=== PATIENT | male | born 1945 | race Caucasian/White ===

== ENCOUNTER 2016-10-02 12:57 | Outpatient (CLI) | payer MEDICARE, OTHER | END 2016-10-02 12:58 | disposition home or self-care (01) | DX: I10 Essential (primary) hypertension (principal); R73.01 Impaired fasting glucose; E78.5 Hyperlipidemia, unspecified ==

== ENCOUNTER 2016-10-31 10:24 | Day surgery (SDC) | payer MEDICARE, OTHER ==
[2016-10-31] MEDS ORDERED: LACTATED RINGERS 1,000 ML IV ONE (10:55)
[2016-10-31] MEDS ORDERED: MIDAZOLAM 2 MG/2 ML VIAL IVP ONE (13:00)
[2016-10-31] MEDS ORDERED: fentaNYL 250 MCG/5 ML VIAL IVP ONE (13:00)
== END 2016-10-31 10:25 | disposition home or self-care (01) ==
PROC: 0DJD8ZZ Inspection of Lower Intestinal Tract, Via Natural or Artificial Opening Endoscopic (ICD-10-PCS; principal; 2016-10-31 11:45)
DX: Z12.11 Encounter for screening for malignant neoplasm of colon (principal); K64.8 Other hemorrhoids; K57.30 Diverticulosis of large intestine without perforation or abscess without bleeding; K64.4 Residual hemorrhoidal skin tags; I10 Essential (primary) hypertension; Z87.891 Personal history of nicotine dependence
CPT/HCPCS: G0121; J3010; J7120

== ENCOUNTER 2017-05-03 11:15 | Outpatient (CLI) | payer MEDICARE, OTHER | END 2017-05-03 11:16 | disposition home or self-care (01) | LOC: LAB 11:15 | PROVIDERS: ATTEND Urology | DX: C61 Malignant neoplasm of prostate (principal) | CPT/HCPCS: 36415; 84153 ==

== ENCOUNTER 2018-04-10 08:00 | Outpatient (CLI) | payer MEDICARE, OTHER ==
[2018-04-10 13:34] LABS: EOSINOPHILS # (AUTO) 0.1 10^3/uL (0.0-0.7); EOSINOPHILS % (AUTO) 2.9 %; HGB - HEMOGLOBIN 13.3 g/dL (14.0-18.0); LYMPHOCYTES # (AUTO) 0.8 10^3/uL (1.5-3.5); LYMPHOCYTES % (AUTO) 18.7 %; MEAN CORPUSCULAR HGB CONC 34.7 g/dL (32.0-36.0); MEAN CORPUSCULAR VOLUME 97.8 fL (80.0-94.0); MEAN PLATELET VOLUME 8.8 fL (7.4-11.4); MONOCYTES # (AUTO) 0.5 10^3/uL (0.0-1.0); MONOCYTES % (AUTO) 12.5 %; NEUTROPHILS # (AUTO) 2.7 10^3/uL (1.5-6.6); NEUTROPHILS % (AUTO) 64.9 %; PLT - PLATELET COUNT 196 10^3/uL (130-450); RED CELL DISTRIBUTION WIDTH 13.3 % (12.0-15.0); WHITE BLOOD COUNT 4.2 x10^3/uL (4.8-10.8)
[2018-04-10 13:48] LABS: ALBUMIN/GLOBULIN RATIO 1.3 (1.0-2.2); ALKALINE PHOSPHATASE 59 IU/L (42-121); ALT ALANINE AMINOTRANSFERASE 11 IU/L (10-60); AST ASPARTATE AMINOTRANSFERASE 19 IU/L (10-42); BILIRUBIN,TOTAL 1.5 mg/dL (0.2-1.0); BUN - BLOOD UREA NITROGEN 17 mg/dL (6-20); CALCIUM 9.3 mg/dL (8.5-10.3); CARBON DIOXIDE - CO2 27 mmol/L (21-32); CHLORIDE 105 mmol/L (101-111); CHOL/HDL RATIO 2.9 (<5.0); CHOLESTEROL 161 mg/dL; CREATININE 0.9 mg/dL (0.6-1.2); GFR - MDRD 83 (>89); GLUCOSE 131 mg/dL (70-100); HDL CHOLESTEROL 55 mg/dL; LDL CHOLESTEROL,CALCULATED 92 mg/dL; LDL/HDL RATIO 1.7 (<3.6); SODIUM 139 mmol/L (135-145); VLDL CHOLESTEROL 14 mg/dL
[2018-04-10 14:38] LABS: HB2 TOTAL 13.9 g/dL; HEMOGLOBIN A1C 0.47 g/dL; HEMOGLOBIN A1C % 5.2 % (4.6-6.2)
== END 2018-04-10 08:01 | disposition home or self-care (01) ==
LOC: LAB.WCP 08:00
PROVIDERS: ATTEND Family Medicine
DX: R73.01 Impaired fasting glucose (principal); I10 Essential (primary) hypertension; C61 Malignant neoplasm of prostate
CPT/HCPCS: 36415; 80053; 80061; 83036; 83721; 84153; 84443; 85025

== ENCOUNTER 2019-05-01 07:05 | Outpatient (CLI) | payer MEDICARE, OTHER ==
[2019-05-01 12:31] LABS: BASOPHILS % (AUTO) 0.5 %; EOSINOPHILS # (AUTO) 0.2 10^3/uL (0.0-0.7); EOSINOPHILS % (AUTO) 4.1 %; HGB - HEMOGLOBIN 12.6 g/dL (14.0-18.0); LYMPHOCYTES # (AUTO) 0.7 10^3/uL (1.5-3.5); MEAN CORPUSCULAR HEMOGLOBIN 33.5 pg (27.0-31.0); MEAN CORPUSCULAR HGB CONC 33.8 g/dL (32.0-36.0); MEAN CORPUSCULAR VOLUME 99.2 fL (80.0-94.0); MEAN PLATELET VOLUME 10.9 fL (7.4-11.4); MONOCYTES # (AUTO) 0.5 10^3/uL (0.0-1.0); NEUTROPHILS % (AUTO) 67.9 %; PLT - PLATELET COUNT 217 10^3/uL (130-450); RED BLOOD COUNT 3.76 10^6/uL (4.70-6.10); RED CELL DISTRIBUTION WIDTH 12.7 % (12.0-15.0); WHITE BLOOD COUNT 4.4 x10^3/uL (4.8-10.8)
[2019-05-01 12:36] LABS: ALBUMIN 4.1 g/dL (3.2-5.5); ALBUMIN/GLOBULIN RATIO 1.3 (1.0-2.2); ALKALINE PHOSPHATASE 55 IU/L (42-121); ALT ALANINE AMINOTRANSFERASE 13 IU/L (10-60); AST ASPARTATE AMINOTRANSFERASE 20 IU/L (10-42); BILIRUBIN,TOTAL 1.6 mg/dL (0.2-1.0); BUN - BLOOD UREA NITROGEN 15 mg/dL (6-20); CALCIUM 9.3 mg/dL (8.5-10.3); CARBON DIOXIDE - CO2 26 mmol/L (21-32); CHLORIDE 108 mmol/L (101-111); CHOL/HDL RATIO 2.9 (<5.0); CHOLESTEROL 153 mg/dL; CREATININE 0.9 mg/dL (0.6-1.2); GFR - MDRD 83 (>89); GLUCOSE 100 mg/dL (70-100); HDL CHOLESTEROL 53 mg/dL; LDL CHOLESTEROL,CALCULATED 91 mg/dL; LDL/HDL RATIO 1.7 (<3.6); SODIUM 142 mmol/L (135-145); TOTAL PROTEIN 7.3 g/dL (6.7-8.2); VLDL CHOLESTEROL 9 mg/dL
[2019-05-01 13:13] LABS: HB2 TOTAL 13.1 g/dL; HEMOGLOBIN A1C 0.49 g/dL; HEMOGLOBIN A1C % 5.6 % (4.6-6.2)
== END 2019-05-01 23:59 | disposition home or self-care (01) ==
LOC: LAB.WCP 07:05
PROVIDERS: ATTEND Family Medicine
DX: E78.5 Hyperlipidemia, unspecified (principal); I10 Essential (primary) hypertension; R73.01 Impaired fasting glucose; F10.10 Alcohol abuse, uncomplicated
CPT/HCPCS: 36415; 80053; 80061; 83036; 83721; 84443; 85025

== ENCOUNTER 2019-07-15 07:00 | Outpatient (CLI) | payer MEDICARE, OTHER ==
[2019-07-15 12:55] LABS: BASOPHILS % (AUTO) 0.5 %; EOSINOPHILS # (AUTO) 0.1 10^3/uL (0.0-0.7); EOSINOPHILS % (AUTO) 1.1 %; HGB - HEMOGLOBIN 13.8 g/dL (14.0-18.0); LYMPHOCYTES # (AUTO) 0.7 10^3/uL (1.5-3.5); LYMPHOCYTES % (AUTO) 12.6 %; MEAN CORPUSCULAR HGB CONC 33.1 g/dL (32.0-36.0); MEAN CORPUSCULAR VOLUME 99.8 fL (80.0-94.0); MEAN PLATELET VOLUME 10.7 fL (7.4-11.4); MONOCYTES # (AUTO) 0.7 10^3/uL (0.0-1.0); MONOCYTES % (AUTO) 12.6 %; NEUTROPHILS # (AUTO) 4.1 10^3/uL (1.5-6.6); NEUTROPHILS % (AUTO) 72.8 %; PLT - PLATELET COUNT 227 10^3/uL (130-450); RED BLOOD COUNT 4.18 10^6/uL (4.70-6.10); RED CELL DISTRIBUTION WIDTH 12.2 % (12.0-15.0); WHITE BLOOD COUNT 5.7 x10^3/uL (4.8-10.8)
[2019-07-15 13:25] LABS: ALBUMIN 4.4 g/dL (3.2-5.5); ALBUMIN/GLOBULIN RATIO 1.2 (1.0-2.2); BILIRUBIN,TOTAL 1.9 mg/dL (0.2-1.0); CALCIUM 9.2 mg/dL (8.5-10.3); CREATININE 0.9 mg/dL (0.6-1.2); TOTAL PROTEIN 8.2 g/dL (6.7-8.2)
== END 2019-07-15 23:59 | disposition home or self-care (01) ==
LOC: LAB.WCP 07:00
PROVIDERS: ATTEND Family Medicine
DX: N50.82 Scrotal pain (principal); C61 Malignant neoplasm of prostate
CPT/HCPCS: 36415; 80053; 84153; 85025; 87077; 87086; 87181

== ENCOUNTER 2019-07-18 16:31 | Outpatient (CLI) | payer MEDICARE, OTHER ==
--- NOTE | 2019-07-20 00:59 | Ultrasound Report ---
Reason: ADENOCARCINOMA PROSTATE, SCROTAL PAIN Procedure Date: 07/18/2019 Accession Number: [id number] / [id number] Procedure: US - Testicle CPT Code: Final Report FULL RESULT: EXAM: SCROTAL ULTRASOUND EXAM DATE: 07/18/2019 05:20 PM. CLINICAL HISTORY: Adenocarcinoma prostate. Scrotal pain. COMPARISON: None. TECHNIQUE: Real-time scanning was performed with static images obtained. Color-flow images were utilized. FINDINGS: Right: Testis: 3.4 x 1.8 x 1.8 cm. Normal size and echotexture. No mass or calcification. Increased abnormal blood flow. Epididymis: 1.7 x 2.0 x 1.8 cm. Normal size and echotexture. No mass. 2 mm cyst. Increased blood flow. Hydrocele: Large amount with septation. Varicocele: None. Left: Testis: 3.1 x 1.5 x 1.6 cm. Normal size and echotexture. No mass, calcification, or abnormal blood flow. Epididymis: 1.0 x 0.8 x 1.0 cm. Normal size and echotexture. No mass or abnormal blood flow. 2 mm cyst. Hydrocele: None. Varicocele: None. Scrotal wall thickening noted, right greater than left. IMPRESSION: Hypervascular right testicle and epididymis compatible with orchitis and epididymitis, with surrounding hydrocele with thin septations. RADIA
== END 2019-07-18 16:32 | disposition home or self-care (01) ==
LOC: DI 16:31
PROVIDERS: ATTEND Family Medicine
DX: C61 Malignant neoplasm of prostate (principal); N50.82 Scrotal pain; N43.3 Hydrocele, unspecified
CPT/HCPCS: 76870

== ENCOUNTER 2020-10-13 08:00 | Outpatient (CLI) | payer MEDICARE, OTHER ==
[2020-10-13 18:22] LABS: BASOPHILS % (AUTO) 0.6 %; EOSINOPHILS # (AUTO) 0.1 10^3/uL (0.0-0.7); EOSINOPHILS % (AUTO) 2.4 %; HGB - HEMOGLOBIN 13.2 g/dL (14.0-18.0); LYMPHOCYTES % (AUTO) 19.6 %; MEAN CORPUSCULAR HEMOGLOBIN 33.4 pg (27.0-31.0); MEAN CORPUSCULAR VOLUME 101.3 fL (80.0-94.0); MEAN PLATELET VOLUME 10.5 fL (7.4-11.4); MONOCYTES # (AUTO) 0.4 10^3/uL (0.0-1.0); MONOCYTES % (AUTO) 7.7 %; NEUTROPHILS # (AUTO) 3.5 10^3/uL (1.5-6.6); NEUTROPHILS % (AUTO) 69.3 %; PLT - PLATELET COUNT 233 10^3/uL (130-450); RED BLOOD COUNT 3.95 10^6/uL (4.70-6.10); RED CELL DISTRIBUTION WIDTH 12.7 % (12.0-15.0); WHITE BLOOD COUNT 5.1 x10^3/uL (4.8-10.8)
[2020-10-13 18:35] LABS: ALBUMIN 4.2 g/dL (3.2-5.5); ALBUMIN/GLOBULIN RATIO 1.3 (1.0-2.2); ALKALINE PHOSPHATASE 54 IU/L (42-121); ALT ALANINE AMINOTRANSFERASE 12 IU/L (10-60); AST ASPARTATE AMINOTRANSFERASE 16 IU/L (10-42); BILIRUBIN,TOTAL 1.1 mg/dL (0.2-1.0); BUN - BLOOD UREA NITROGEN 19 mg/dL (6-20); CALCIUM 9.7 mg/dL (8.5-10.3); CARBON DIOXIDE - CO2 27 mmol/L (21-32); CHLORIDE 100 mmol/L (101-111); CHOL/HDL RATIO 3.6 (<5.0); CHOLESTEROL 213 mg/dL; CREATININE 0.8 mg/dL (0.6-1.2); GLUCOSE 115 mg/dL (70-100); HDL CHOLESTEROL 59 mg/dL; LDL CHOLESTEROL,CALCULATED 130 mg/dL; LDL/HDL RATIO 2.2 (<3.6); TOTAL PROTEIN 7.4 g/dL (6.7-8.2); VLDL CHOLESTEROL 24 mg/dL
[2020-10-13 20:53] LABS: HEMOGLOBIN A1c% 5.5 % (4.27-6.07)
== END 2020-10-13 23:59 | disposition home or self-care (01) ==
LOC: LAB.WCP 08:00
PROVIDERS: ATTEND Family Medicine
DX: I10 Essential (primary) hypertension (principal); E78.5 Hyperlipidemia, unspecified; R73.01 Impaired fasting glucose; Z85.46 Personal history of malignant neoplasm of prostate
CPT/HCPCS: 36415; 80053; 80061; 83036; 83721; 84153; 85025

== ENCOUNTER 2020-10-28 10:11 | Outpatient (CLI) | payer MEDICARE, OTHER ==
--- NOTE | 2020-10-28 11:27 | Ultrasound Report ---
PROCEDURE: Aorta Screening INDICATIONS: NICOTINE ADDICTION, IN REMISSION TECHNIQUE: Real time scanning was performed of the aorta and iliac arteries, with image documentatio n. COMPARISON: None FINDINGS: Aorta: Proximal aortic diameter measures 3.3 cm. Mid-aorta measures 3.2 cm. Distal aortic diameter is 3.5 cm. Iliac arteries: Right common iliac artery measures 1.9 cm. Left common iliac artery measures 1.9 cm . IMPRESSION: Mild aneurysmal dilatation of the abdominal aorta. Annual sonographic surveillance is recommended. Reviewed by: Tamanna Flynn MD on 10/28/2020 11:25 AM [facility] Approved by: Tamanna Flynn MD on 10/28/2020 11:25 AM PST Station ID: [id number]
== END 2020-10-28 10:12 | disposition home or self-care (01) ==
LOC: DI 10:11
PROVIDERS: ATTEND Family Medicine
DX: F17.201 Nicotine dependence, unspecified, in remission (principal); I71.4 Abdominal aortic aneurysm, without rupture

== ENCOUNTER 2021-09-30 08:00 | Outpatient (CLI) | payer MEDICARE, OTHER ==
[2021-09-30 12:21] LABS: BASOPHILS % (AUTO) 0.4 %; EOSINOPHILS # (AUTO) 0.1 10^3/uL (0.0-0.7); EOSINOPHILS % (AUTO) 1.9 %; HCT - HEMATOCRIT 40.5 % (42.0-52.0); HGB - HEMOGLOBIN 13.7 g/dL (14.0-18.0); LYMPHOCYTES # (AUTO) 0.5 10^3/uL (1.5-3.5); LYMPHOCYTES % (AUTO) 19.7 %; MEAN CORPUSCULAR HGB CONC 33.8 g/dL (32.0-36.0); MEAN CORPUSCULAR VOLUME 97.6 fL (80.0-94.0); MEAN PLATELET VOLUME 10.9 fL (7.4-11.4); MONOCYTES # (AUTO) 0.4 10^3/uL (0.0-1.0); MONOCYTES % (AUTO) 13.3 %; NEUTROPHILS # (AUTO) 1.7 10^3/uL (1.5-6.6); NEUTROPHILS % (AUTO) 62.8 %; PLT - PLATELET COUNT 176 10^3/uL (130-450); RED BLOOD COUNT 4.15 10^6/uL (4.70-6.10); RED CELL DISTRIBUTION WIDTH 12.1 % (12.0-15.0); WHITE BLOOD COUNT 2.6 x10^3/uL (4.8-10.8)
[2021-09-30 12:24] LABS: SLIDE REVIEW? Indicated
[2021-09-30 13:10] LABS: ALBUMIN 3.9 g/dL (3.2-5.5); ALBUMIN/GLOBULIN RATIO 1.1 (1.0-2.2); ALKALINE PHOSPHATASE 62 IU/L (42-121); ALT ALANINE AMINOTRANSFERASE 16 IU/L (10-60); AST ASPARTATE AMINOTRANSFERASE 24 IU/L (10-42); BILIRUBIN,TOTAL 0.8 mg/dL (0.2-1.0); BUN - BLOOD UREA NITROGEN 20 mg/dL (6-20); CALCIUM 9.2 mg/dL (8.5-10.3); CARBON DIOXIDE - CO2 27 mmol/L (21-32); CHLORIDE 102 mmol/L (101-111); CHOL/HDL RATIO 5.2 (<5.0); CHOLESTEROL 155 mg/dL; CREATININE 0.9 mg/dL (0.6-1.2); GFR - MDRD 82 (>89); GLUCOSE 124 mg/dL (70-100); HDL CHOLESTEROL 30 mg/dL; LDL CHOLESTEROL,CALCULATED 111 mg/dL; LDL/HDL RATIO 3.7 (<3.6); POTASSIUM 3.9 mmol/L (3.5-5.0); SODIUM 139 mmol/L (135-145); TOTAL PROTEIN 7.4 g/dL (6.7-8.2); TRIGLYCERIDES 69 mg/dL; VLDL CHOLESTEROL 14 mg/dL
[2021-09-30 13:38] LABS: PLATELET ESTIMATE, MANUAL NORMAL (130-450,000) (NORMAL); PLATELET MORPHOLOGY NORMAL APPEARANCE (NORMAL); RBC MORPHOLOGY (MULTIPLE) NORMAL APPEARANCE (NORMAL); WBC MORPHOLOGY (MULTIPLE) NORMAL APPEARANCE (NORMAL)
[2021-09-30 15:22] LABS: ESTIMATED AVERAGE GLUCOSE 126 mg/dL (70-100)
== END 2021-09-30 23:59 | disposition home or self-care (01) ==
LOC: LAB.WCP 08:00
PROVIDERS: ATTEND Family Medicine
DX: E78.5 Hyperlipidemia, unspecified (principal); I10 Essential (primary) hypertension; N40.1 Benign prostatic hyperplasia with lower urinary tract symptoms; N13.8 Other obstructive and reflux uropathy
CPT/HCPCS: 36415; 80053; 80061; 83036; 83721; 84153; 85025

== ENCOUNTER 2021-09-30 13:49 | Emergency (ER) | payer MEDICARE, OTHER ==
[2021-09-30 13:58] VITALS: BP 145/75
--- NOTE | 2021-09-30 14:10 | ED Physician Documentation ---
History of Present Illness - Stated complaint Stated Complaint: COVID EXPOSURE - Chief complaint Chief Complaint: Resp - History obtained from History obtained from: Patient - History of Present Illness Timing: Today Pain level max: 0 Pain level now: 0 - Additonal information Additional information: Patient is a 76-year-old male who states that he was exposed to Covid and is here for a Covid test. He states he could not find anywhere else to get a Covid test. Patient is asymptomatic. Review of Systems Constitutional: denies: Fever, Chills Respiratory: denies: Cough GI: denies: Vomiting, Diarrhea Skin: denies: Rash Musculoskeletal: denies: Neck pain, Back pain Neurologic: denies: Headache PD PAST MEDICAL HISTORY - Past Medical History Past Medical History: Yes Cardiovascular: Hypertension, High cholesterol Respiratory: None Endocrine/Autoimmune: None GI: None : None, Other HEENT: None Psych: None Musculoskeletal: None Derm: None - Past Surgical History Past Surgical History: Yes General: Colonoscopy - Present Medications Home Medications: Ambulatory Orders Medication Instructions Recorded Confirmed Simvastatin 20 mg PO DAILY 10/30/16 10/31/16 Tamsulosin [Flomax] 0.4 mg PO DAILY 10/30/16 10/31/16 atenoloL [Atenolol] 25 mg PO DAILY 10/30/16 10/31/16 lisinopriL [Lisinopril] 30 mg PO DAILY 10/30/16 10/31/16 - Allergies Allergies/Adverse Reactions: Allergies Allergy/AdvReac Type Severity Reaction Status Date / Time No Known Drug Allergies Allergy Verified 09/30/21 13:58 - Social History Does the pt smoke?: No Smoking Status: Never smoker Does the pt drink ETOH?: Yes ETOH Use: Beer Does the pt have substance abuse?: Yes Substance Use and Type: Marijuana - Immunizations Immunizations are current?: Yes PD ED PE NORMAL - Vitals Vital signs reviewed: Yes - General General: Alert and oriented X 3, No acute distress, Well developed/nourished - HEENT HEENT: Moist mucous membranes - Neck Neck: Supple, no meningeal sign - Cardiac Cardiac: RRR, Strong equal pulses - Respiratory Respiratory: No respiratory distress, Clear bilaterally - Derm Derm: Warm and dry - Neuro Neuro: Alert and oriented X 3 Results - Vitals Vitals: Vital Signs - 24 hr 09/30/21 13:53 Temperature 36.2 C L Heart Rate 92 Respiratory 20 Rate Blood Pressure 145/75 H O2 Saturation 97 Oxygen O2 Source Room air PD MEDICAL DECISION MAKING - ED course Complexity details: considered differential, d/w patient ED course: Covid test performed. Patient asymptomatic. No emergency medical condition at this time. No indication for further work-up This document was made in part using voice recognition software. While efforts are made to proofread this document, sound alike and grammatical errors may occur. Departure - Departure Disposition: 01 Home, Self Care Clinical Impression: Exposure to COVID-19 virus Condition: Good Instructions: COVID-19 [facility] Follow-Up: Nathaniel Madden DO [Primary Care Provider] - Comments: You have a Covid test pending. You need to self quarantine until the result is done and negative. The results should be done in 24-48 hours. We will call with a positive result, the fastest way to get a negative result for confirmation though is to go to the hospital website at [email or web address], click on the my [employer] tab and sign up for the patient portal. If any of your friends and/or family need to be tested, they can call the hospital at [phone] for an appointment to have their Covid test. Discharge Date/Time: 09/30/21 14:14
== END 2021-09-30 14:14 | disposition home or self-care (01) ==
LOC: ED 13:49
DX: U07.1 COVID-19 (principal); I10 Essential (primary) hypertension; E78.5 Hyperlipidemia, unspecified; N40.1 Benign prostatic hyperplasia with lower urinary tract symptoms; N13.8 Other obstructive and reflux uropathy; Z79.02 Long term (current) use of antithrombotics/antiplatelets
CPT/HCPCS: 36415; 80053; 80061; 83036; 84153; 85025; 99281; 99283; U0004; 83721

== ENCOUNTER 2021-11-01 17:28 | Outpatient (CLI) | payer MEDICARE, OTHER ==
--- NOTE | 2021-11-02 13:12 | XRAY Report ---
PROCEDURE: Cervical Spine 2 View INDICATIONS: NECK PX TECHNIQUE: 3 view(s) of the cervical spine were acquired. COMPARISON: None. FINDINGS: Bones: No fractures or dislocations to the T1 level. There is severe multilevel disc height loss fro m C3 through T1 and trace retrolisthesis C3 on 4 and C4 on 5. Moderate anterior endplate spurs are pr esent. The lateral masses of C1 appear intact on the odontoid view. No suspicious bony lesions. Soft tissues: No prevertebral soft tissue swelling. Mild bilateral carotid calcifications. IMPRESSION: 1. Severe multilevel degenerative disc disease throughout the cervical spine. 2. Endplate spurring throughout, and trace retrolisthesis of the upper cervical spine. Reviewed by: Evita Meek MD on 11/02/2021 1:10 PM PST Approved by: Evita Meek MD on 11/02/2021 1:10 PM PST Station ID: [id number]
== END 2021-11-01 17:29 | disposition home or self-care (01) ==
LOC: DI.N 17:28
PROVIDERS: ATTEND Family Medicine
DX: M50.31 Other cervical disc degeneration, high cervical region (principal); M43.12 Spondylolisthesis, cervical region

== ENCOUNTER 2021-11-16 07:43 | Outpatient (CLI) | payer MEDICARE, OTHER ==
--- NOTE | 2021-11-16 16:43 | Ultrasound Report ---
PROCEDURE: Retroperitoneal Limited INDICATIONS: AAA TECHNIQUE: Real time scanning was performed of the aorta and iliac arteries, with image documentatio n. COMPARISON: Aorta ultrasound 10/28/2020 FINDINGS: Aorta: Proximal aortic diameter measures 2.8 x 2.6 cm. Mid-aorta measures 2.6 x 2.9 cm. Distal aor tic diameter is 3.1 x 3.5 cm. This is unchanged compared to prior exam. Iliac arteries: Right common iliac artery measures 1.5 x 1.8 cm. Left common iliac artery measures 1.5 x 1.9 cm. IMPRESSION: Stable mild aneurysmal dilation of the infrarenal abdominal aorta. Reviewed by: Nori Leyva MD on 11/16/2021 4:42 PM PDT Approved by: Nori Leyva MD on 11/16/2021 4:42 PM PDT Station ID: [id number]
== END 2021-11-16 07:44 | disposition home or self-care (01) ==
LOC: DI 07:43
PROVIDERS: ATTEND Family Medicine
DX: I71.4 Abdominal aortic aneurysm, without rupture (principal)

== ENCOUNTER 2022-05-16 09:12 | Outpatient (CLI) | payer MEDICARE, OTHER ==
[2022-05-16] MEDS: ALBUTEROL 1 PUFF INH STA (11:03)
== END 2022-05-16 09:13 | disposition home or self-care (01) ==
LOC: RT 09:12
PROVIDERS: ATTEND Internal Medicine
DX: R06.09 Other forms of dyspnea (principal); Z87.891 Personal history of nicotine dependence
CPT/HCPCS: 94060; 94729

== ENCOUNTER 2022-05-25 09:10 | Outpatient (CLI) | payer MEDICARE, OTHER | END 2022-05-25 09:11 | disposition home or self-care (01) | LOC: DI 09:10 | PROVIDERS: ATTEND Internal Medicine | DX: R06.09 Other forms of dyspnea (principal); I11.9 Hypertensive heart disease without heart failure; I77.810 Thoracic aortic ectasia | CPT/HCPCS: 93306 ==

== ENCOUNTER 2023-02-13 12:22 | Outpatient (CLI) | payer MEDICARE, OTHER ==
--- NOTE | 2023-02-14 09:58 | Mammography Report ---
MALE BILATERAL DIGITAL DIAGNOSTIC MAMMOGRAM 3D/2D: 02/13/2023 CLINICAL: Palpable bilateral breast lumps. No prior exams were available for comparison. There is a benign 2.8 cm area of fibroglandular tissue in the right breast central to the nipple in t he retroareolar region. There is a benign 2.4 cm area of fibroglandular tissue in the left breast central to the nipple in th e retroareolar region. This correlates as palpated and to the area of reported pain. No other significant masses or calcifications are seen in either breast. IMPRESSION: BENIGN There is no mammographic evidence of malignancy. Bilateral gynecomastia is benign. Exam findings were conveyed to the patient. Patient is advised to monitor for significant change. Cli nical follow-up is recommended. This exam was interpreted at Station ID: [id number]. NOTE: For mammograms, a report in lay terms will be sent to the patient. Approximately 15% of breast malignancies will not be visualized mammographically. In the management of a palpable breast mass, a negative mammogram must not discourage biopsy of a clinically suspicious lesion. Electronically Signed By: Feroz Steward M.D. slc/:02/13/2023 13:32:28 ACR BI-RADS Category 2: Benign Finding(s) 3342F PARENCHYMAL PATTERN: (F) - The breast(s) demonstrate(s) diffuse fatty replacement. BI-RADS CATEGORY: (2) - 2 Unspecified - other recall n/a LATERALITY: (B)
== END 2023-02-13 12:23 | disposition home or self-care (01) ==
LOC: DI 12:22
PROVIDERS: ATTEND Physician Assistant Medical
DX: N62 Hypertrophy of breast (principal)

== ENCOUNTER 2023-02-23 09:41 | Outpatient (CLI) | payer MEDICARE, OTHER ==
[2023-02-23 11:51] LABS: BASOPHILS % (AUTO) 0.6 %; EOSINOPHILS # (AUTO) 0.2 10^3/uL (0.0-0.7); EOSINOPHILS % (AUTO) 2.3 %; HCT - HEMATOCRIT 40.5 % (42.0-52.0); HGB - HEMOGLOBIN 13.8 g/dL (14.0-18.0); LYMPHOCYTES # (AUTO) 0.8 10^3/uL (1.5-3.5); LYMPHOCYTES % (AUTO) 11.1 %; MEAN CORPUSCULAR HEMOGLOBIN 33.8 pg (27.0-31.0); MEAN CORPUSCULAR HGB CONC 34.1 g/dL (32.0-36.0); MEAN CORPUSCULAR VOLUME 99.3 fL (80.0-94.0); MEAN PLATELET VOLUME 10.3 fL (7.4-11.4); MONOCYTES # (AUTO) 0.6 10^3/uL (0.0-1.0); MONOCYTES % (AUTO) 9.2 %; NEUTROPHILS # (AUTO) 5.2 10^3/uL (1.5-6.6); NEUTROPHILS % (AUTO) 76.4 %; PLT - PLATELET COUNT 211 10^3/uL (130-450); RED BLOOD COUNT 4.08 10^6/uL (4.70-6.10); RED CELL DISTRIBUTION WIDTH 12.8 % (12.0-15.0); WHITE BLOOD COUNT 6.9 x10^3/uL (4.8-10.8)
[2023-02-23 12:04] LABS: ESTIMATED AVERAGE GLUCOSE 120 mg/dL (70-100); HEMOGLOBIN A1c% 5.8 % (4.27-6.07)
[2023-02-23 12:08] LABS: ALBUMIN/GLOBULIN RATIO 1.1 (1.0-2.2); ALKALINE PHOSPHATASE 65 IU/L (42-121); ALT ALANINE AMINOTRANSFERASE 15 IU/L (10-60); AST ASPARTATE AMINOTRANSFERASE 19 IU/L (10-42); BILIRUBIN,TOTAL 2.1 mg/dL (0.2-1.0); BUN - BLOOD UREA NITROGEN 15 mg/dL (6-20); CALCIUM 9.2 mg/dL (8.5-10.3); CARBON DIOXIDE - CO2 27 mmol/L (21-32); CHLORIDE 105 mmol/L (101-111); CHOL/HDL RATIO 2.7 (<5.0); CHOLESTEROL 171 mg/dL; CREATININE 0.9 mg/dL (0.6-1.2); GFR - MDRD 82 (>89); GLUCOSE 129 mg/dL (70-100); HDL CHOLESTEROL 63 mg/dL; LDL CHOLESTEROL,CALCULATED 97 mg/dL; LDL/HDL RATIO 1.5 (<3.6); POTASSIUM 4.2 mmol/L (3.5-5.0); SODIUM 138 mmol/L (135-145); TOTAL PROTEIN 7.6 g/dL (6.7-8.2); TRIGLYCERIDES 53 mg/dL; VLDL CHOLESTEROL 11 mg/dL
[2023-02-23 12:17] LABS: THYROID STIMULATING HORMONE 1.77 uIU/mL (0.34-5.60)
[2023-02-23 17:59] LABS: CREATININE,URINE 101.8 mg/dL; MICROALBUM/CREATININE RATIO,UR 8.8 ug/mg (<30.0); MICROALBUMIN,URINE 0.9 mg/dL (0-300.0)
== END 2023-02-23 09:42 | disposition home or self-care (01) ==
LOC: LAB.N 09:41
PROVIDERS: ATTEND Internal Medicine
DX: C61 Malignant neoplasm of prostate (principal); I10 Essential (primary) hypertension; R73.01 Impaired fasting glucose; E78.5 Hyperlipidemia, unspecified; I48.91 Unspecified atrial fibrillation
CPT/HCPCS: 36415; 80053; 80061; 82043; 82570; 83036; 83721; 84153; 84443; 85025

== ENCOUNTER 2023-04-26 17:53 | Outpatient (CLI) | payer MEDICARE, OTHER ==
[2023-04-26 21:03] LABS: CALCIUM 9.4 mg/dL (8.5-10.3); CREATININE 1.2 mg/dL (0.6-1.2); POTASSIUM 3.8 mmol/L (3.5-5.0)
== END 2023-04-26 17:54 | disposition home or self-care (01) ==
LOC: LAB.N 17:53
PROVIDERS: ATTEND Internal Medicine
DX: I10 Essential (primary) hypertension (principal)
CPT/HCPCS: 36415; 80048

== ENCOUNTER 2023-07-16 07:35 | Outpatient (CLI) | payer MEDICARE, OTHER ==
--- NOTE | 2023-07-16 11:03 | Ultrasound Report ---
PROCEDURE: Retroperitoneal Limited INDICATIONS: AAA TECHNIQUE: Real-time scanning was performed of the retroperitoneal organs, with image documentation. COMPARISON: 11/16/2021 FINDINGS: The proximal abdominal aorta measures 2.9 x 2.8 cm. The mid abdominal aorta measures 2.6 x 2.9 cm. The distal abdominal aorta measures 3.2 x 3.5 cm. Previously 3.1 x 3.5 cm. The right EVA measures 1.6 x 1.6 cm. The left EVA measures 1.6 x 1.6 cm. Miscellaneous: No free abdominal fluid. Calcified plaque is seen throughout the abdominal aorta. IMPRESSION: Stable aneurysmal dilatation of the distal infrarenal aorta measuring 3.2 x 3.5 cm Reviewed by: Greg Hermosillo on 07/16/2023 11:02 AM [facility] Approved by: Greg Hermosillo on 07/16/2023 11:02 AM [facility] Station ID: [id number]
== END 2023-07-16 07:36 | disposition home or self-care (01) ==
LOC: DI 07:35
PROVIDERS: ATTEND Internal Medicine
DX: I71.40 Abdominal aortic aneurysm, without rupture, unspecified (principal)

== ENCOUNTER 2024-01-20 12:26 | Outpatient (CLI) | payer MEDICARE, OTHER ==
--- NOTE | 2024-01-20 20:34 | Ultrasound Report ---
PROCEDURE: Aorta Duplex Complete INDICATIONS: BILATERAL CLAUDICATION TECHNIQUE: Color and pulse Doppler interrogation was performed of the aorta and iliac arterial systems, with eyal ge documentation. COMPARISON: None. FINDINGS: Aorta: 24 cm/sec, with triphasic flow. There is fusiform aneurysmal dilatation of the abdominal aorta which measures up to 4.6 cm in lateral diameter. Right lower extremity: Proximal common iliac artery: 99cm/sec, with monophasic flow. Distal common iliac artery: 71 cm/sec, with monophasic flow. Proximal external iliac artery: 57 cm/sec, with biphasic flow. Distal external iliac artery: 35 cm/sec, with monophasic flow. Common femoral artery: 55 cm/sec, with biphasic flow. Barton-scale imaging description: 10th atheromatous plaque and calcification throughout. Left lower extremity: Proximal common iliac artery: 120 cm/sec, with monophasic flow. Distal common iliac artery: 151 cm/sec, with monophasic flow. Proximal external iliac artery: 58 cm/sec, with monophasic flow. Distal external iliac artery: 48 cm/sec, with monophasic flow. Common femoral artery: 48 cm/sec, with monophasic flow. Barton-scale imaging description: Dense atheromatous plaque and calcification throughout. IMPRESSION: 1. Fusiform aneurysmal dilatation of the abdominal aorta. 2. Dense atheromatous calcifications and predominantly monophasic waveforms throughout the pelvic art eries bilaterally. Reviewed by: Hilda Linder MD on 01/20/2024 8:33 PM PDT Approved by: Hilda Linder MD on 01/20/2024 8:33 PM PDT Station ID: [id number]
--- NOTE | 2024-01-20 20:38 | Ultrasound Report ---
PROCEDURE: Arterial Duplex Lwr Ext BL INDICATIONS: BILATERAL CLAUDICATION TECHNIQUE: Color and pulse Doppler interrogation was performed of both lower extremity arterial systems, with im age documentation. COMPARISON: None FINDINGS: Right lower extremity: Common femoral artery: 30 cm/sec, with monophasic flow. Deep femoral artery: 40 cm/sec, with monophasic flow. Proximal superficial femoral artery: 11 cm/sec, with monophasic flow. Mid superficial femoral artery: 21 cm/sec, with monophasic flow. Distal superficial femoral artery: 14 cm/sec, with monophasic flow. Popliteal artery: 17 cm/sec, with monophasic flow. Posterior tibial artery: 18 cm/sec, with monophasic flow. Anterior tibial artery/dorsalis pedis: 23 cm/sec, with monophasic flow. Barton-scale imaging description: Dense atheromatous plaque throughout. Left lower extremity: Common femoral artery: 102 cm/sec, with monophasic flow. Deep femoral artery: 29 cm/sec, with monophasic flow. Proximal superficial femoral artery: 18 cm/sec, with monophasic flow. Mid superficial femoral artery: 20 cm/sec, with monophasic flow. Distal superficial femoral artery: 11 cm/sec, with monophasic flow. Popliteal artery: 14 cm/sec, with monophasic flow. Posterior tibial artery: cm/sec, with monophasic flow. Anterior tibial artery/dorsalis pedis: 26 cm/sec, with monophasic flow. Barton-scale imaging description: Dense atheromatous plaque throughout. IMPRESSION: Monophasic waveforms throughout. Findings suggest inflow stenoses within the iliac arteries. If furth er characterization is warranted, CTA with bilateral lower extremity runoff could be used. Reviewed by: Hilda Linder MD on 01/20/2024 8:37 PM PDT Approved by: Hilda Linder MD on 01/20/2024 8:37 PM PDT Station ID: [id number]
== END 2024-01-20 12:27 | disposition home or self-care (01) ==
LOC: DI 12:26
PROVIDERS: ATTEND Internal Medicine
DX: I71.40 Abdominal aortic aneurysm, without rupture, unspecified (principal); I70.203 Unspecified atherosclerosis of native arteries of extremities, bilateral legs
CPT/HCPCS: 93925; 93978

== ENCOUNTER 2024-02-12 11:49 | Outpatient (CLI) | payer MEDICARE, OTHER | END 2024-02-12 11:50 | disposition home or self-care (01) | LOC: LAB 11:49 | PROVIDERS: ATTEND Internal Medicine | DX: I73.9 Peripheral vascular disease, unspecified (principal) | CPT/HCPCS: 36415; 82565 ==

== ENCOUNTER 2024-02-18 14:23 | Outpatient (CLI) | payer MEDICARE, OTHER ==
[2024-02-18] MEDS ORDERED: iohexoL-300 150 ML BOTTLE ONE (14:26)
[2024-02-18] MEDS: iohexoL-300 150 ML BOTTLE IVP ONE (16:43)
--- NOTE | 2024-02-18 17:41 | CT Report ---
PROCEDURE: Angio Abdomen Runoff BL INDICATIONS: BILATERL CLAUDICATION CONTRAST: Omni 300 125ml TECHNIQUE: After the administration of intravenous contrast, a CT scan of the abdomen, pelvis and lower extremit ies (to the feet) was performed. Images were recorded and evaluated at appropriate window settings. R eformats: coronal and sagittal. For radiation dose reduction, the following was used: automated expos ure control, adjustment of mA and/or kV according to patient size. COMPARISON: None. FINDINGS: Image quality: Excellent. Abdominal aorta: There are atheromatous calcifications are present throughout the abdominal aorta wh ich is moderately tortuous. There is a 3.1 cm fusiform aneurysm of the infrarenal abdominal aorta. Th e celiac axis, SMA, LAYLA, and right renal artery are widely patent. A moderate stenosis is present at the origin of the left renal artery. Right lower extremity: Common iliac artery: Dense calcification and a calcified, ulcerated plaque is present at the origin o f the right common iliac artery with resultant severe canal stenosis. There is poststenotic dilatatio n present. External iliac artery: Scattered atheromatous calcification with mild to moderate stenosis. Common femoral artery: Exophytic calcification with moderate stenosis proximally and poststenotic dil atation distally.. Superficial femoral artery: Scattered atheromatous calcification. Multifocal high-grade stenosis with a near occlusive stenosis in the midportion of the vessel (series 6/image 217). Popliteal artery: Multifocal moderate stenosis secondary to atheromatous calcification. Anterior tibial artery: No significant atherosclerotic disease. Peroneal artery: No significant atherosclerotic disease. Posterior tibial artery: No significant atherosclerotic disease. Left lower extremity: Right lower extremity: Common iliac artery: Severe stenosis at the origin with poststenotic dilatation and scattered atherom atous calcifications. External iliac artery: Scattered atheromatous calcification. No focal stenosis. Common femoral artery: Dense exophytic calcifications with near occlusive stenosis. Superficial femoral artery: Scattered atheromatous calcifications with mild to moderate stenosis thro ughout. A focal near occlusive stenosis is present near the abductor hiatus (series 6/image 250). Popliteal artery: Scattered atheromatous calcification with multifocal mild to moderate stenosis. Anterior tibial artery: No significant atherosclerotic disease. Peroneal artery: No significant atherosclerotic disease. Posterior tibial artery: No significant atherosclerotic disease. OTHER: Lung bases and heart: Unremarkable. Liver: No solid mass. A low density cyst is present within the anterior left hepatic lobe. Gallbladder and biliary tree: A subcentimeter calcified stone is present in the fundus. No gallbladde r wall thickening or pericholecystic fluid. Spleen: No splenomegaly. Pancreas: No pancreatic ductal dilation. Adrenals: No adrenal nodule. Kidneys and ureters: No hydronephrosis. No renal cystic lesion which requires follow up. No solid mas s. A low density cyst is present within the midpole of the right kidney. There are bilateral pararena l cysts. Bowel and peritoneum: No bowel distension. No pathologic free fluid. There are extensive sigmoid colo n diverticular outpouchings. No focal mucosal thickening or pericolonic fat stranding to suggest acut e diverticulitis. Lymph nodes: No central or retroperitoneal adenopathy. Vessels: No infrarenal aortic aneurysm. Reproductive organs: Unremarkable. Bladder: No abnormal wall thickening, accounting for underdistention. Pelvic lymph nodes: No pelvic adenopathy by size criteria. Bones: No aggressive osseous abnormality. Other: No significant ventral or inguinal hernia. IMPRESSION: 1. Cholelithiasis. No findings to suggest choledocholithiasis or acute cholecystitis. 2. High-grade stenosis at the origins of the bilateral common iliac arteries with poststenotic dilata tion. 3. Dense exophytic atheromatous calcifications within the bilateral common femoral arteries with mode rate right and near occlusive stenosis on the left. 4. Near occlusive stenosis secondary to atheromatous calcification within the mid right SFA 5. Near occlusive stenosis within the left SFA near the abductor hiatus. 6. Moderate stenoses bilaterally within the popliteal artery secondary to atheromatous calcifications . 7. Bilateral three-vessel lower extremity runoff. 8. Fusiform dilatation of the abdominal aorta to 3.1 cm diameter. Reviewed by: Hilda Linder MD on 02/18/2024 5:40 PM PDT Approved by: Hilda Linder MD on 02/18/2024 5:40 PM PDT Station ID: [id number]
== END 2024-02-18 14:24 | disposition home or self-care (01) ==
LOC: DI 14:23
PROVIDERS: ATTEND Internal Medicine
DX: K80.20 Calculus of gallbladder without cholecystitis without obstruction (principal); I70.8 Atherosclerosis of other arteries; I70.208 Unspecified atherosclerosis of native arteries of extremities, other extremity